=== PATIENT | male | born 1960 | race Native Hawaiian/Other Pacific Islander ===

== ENCOUNTER 2017-03-30 07:35 | Emergency (ER) | payer OTHER ==
[~2017-03-30] VITALS: Ht 177.8 cm; Wt 90.7 kg
== END 2017-03-30 08:30 | disposition home or self-care (01) ==
LOC: ED 07:35
DX: C76.0 Malignant neoplasm of head, face and neck (principal)
CPT/HCPCS: 99282

== ENCOUNTER 2021-03-28 23:35 | Inpatient (IN) | payer OTHER ==
[~2021-03-28] VITALS: Ht 180.3 cm; Wt 113.5 kg
[2021-03-29] VITALS (32 sets, daily range): BP systolic 65–149; BP diastolic 28–87; TEMP 97.2–99.8
[2021-03-29 00:48] LABS: PLATELET COUNT 94 K/uL (142-355)
[2021-03-29 00:52] LABS: POTASSIUM 4.2 mmol/L (3.6-5.2)
[2021-03-29 09:18] LABS: POTASSIUM 4.8 mmol/L (3.6-5.2)
[2021-03-30] VITALS (10 sets, daily range): BP systolic 100–113; BP diastolic 60–68; TEMP 97.9–100.2
[2021-03-30 08:34] LABS: POTASSIUM 5.7 mmol/L (3.6-5.2)
[2021-03-30 08:35] LABS: PLATELET COUNT 84 K/uL (142-355)
[2021-03-30 17:01] LABS: LDL CHOLESTEROL < 30.0 mg/dL (0-99*)
[2021-03-31] VITALS (14 sets, daily range): BP systolic 84–151; BP diastolic 51–88; TEMP 98.1–101.2
[2021-03-31 06:11] LABS: PLATELET COUNT 105 K/uL (142-355)
[2021-03-31 06:21] LABS: POTASSIUM 5.5 mmol/L (3.6-5.2)
[2021-04-01] VITALS (13 sets, daily range): BP systolic 85–121; BP diastolic 52–68; TEMP 97.7–98.7
[2021-04-01 06:38] LABS: PLATELET COUNT 108 K/uL (142-355)
[2021-04-01 06:53] LABS: POTASSIUM 5.8 mmol/L (3.6-5.2)
[2021-04-02] VITALS (16 sets, daily range): BP systolic 88–126; BP diastolic 50–70; TEMP 96.7–97.72; Ht 180.3 cm; Wt 113.5 kg
[2021-04-02 05:10] LABS: POTASSIUM 5.9 mmol/L (3.6-5.2)
[2021-04-03 05:32] LABS: PLATELET COUNT 70 K/uL (142-355)
[2021-04-03 06:17] LABS: POTASSIUM 7.2 mmol/L (3.6-5.2)
== END 2021-04-03 09:30 | disposition expired | DRG 208 ==
LOC: ED 23:35 → PCU 04-02 11:40
PROVIDERS: Emergency Medicine; Emergency Medicine Emergency Medical Services; Hospitalist; ADMIT Internal Medicine; ATTEND Internal Medicine
PROC: 0BH17EZ Insertion of Endotracheal Airway into Trachea, Via Natural or Artificial Opening (ICD-10-PCS; principal; 2021-03-28)
PROC: 5A1935Z Respiratory Ventilation, Less than 24 Consecutive Hours (ICD-10-PCS; 2021-03-28)
PROC: 06HN33Z Insertion of Infusion Device into Left Femoral Vein, Percutaneous Approach (ICD-10-PCS; 2021-03-28)
PROC: 0T9B70Z Drainage of Bladder with Drainage Device, Via Natural or Artificial Opening (ICD-10-PCS; 2021-03-28)
DX: U07.1 COVID-19 (principal); J12.82 Pneumonia due to coronavirus disease 2019; J96.90 Respiratory failure, unspecified, unspecified whether with hypoxia or hypercapnia; J44.9 Chronic obstructive pulmonary disease, unspecified; F17.210 Nicotine dependence, cigarettes, uncomplicated
CPT/HCPCS: 36415; 36558; 36591; 36600; 51702; 80048; 80053; 80061; 82805; 82948; 83605; 84132; 84484; 85007; 85027; 87040; 87077; 87185; 87186; 87205; 94002; 94003; 94760; 96360; 96365; 96366; 96372; 96375; 96376; 99285; J0330; J0456; J0696; J1100; J1250; J1265; J1650; J1815; J2250; J2920; J2930; J3370; J3490